=== PATIENT | female | born 1960 | race Caucasian/White ===

== ENCOUNTER 2021-01-11 11:19 | Outpatient (REF) | payer OTHER, SELFPAY ==
--- NOTE | ~2021-01-11 | CT_ITS ---
EXAMINATION: CT SOFT TISSUE NECK WITH CONTRAST CLINICAL INFORMATION: Right neck mass. Evaluate for malignancy. COMPARISON: No relevant prior imaging. TECHNIQUE: Following the intravenous administration of 60 mL of Omnipaque 350 intravenous contrast, helical imaging was performed in the axial plane with generation of coronal and sagittal reformatted images. This CT examination was performed using dose optimization techniques as appropriate, variously including the following: *Automated exposure control *Adjustment of mA and/or kV according to patient size (this includes techniques or standardized protocols for targeted exams where dose is matched to indication/reason for exam; i.e. extremities or head) *Use of iterative reconstruction technique DLP: 307 mGy-cm FINDINGS: There is a heterogeneously enhancing solid mass within the right submandibular space measuring 2.3 cm in diameter best illustrated on axial image 52 of 138 series 3. There is nonspecific stranding within the adjacent fat and asymmetric hyperenhancement of the right submandibular gland. Otherwise no pathologically enlarged cervical lymph nodes. No mediastinal or axillary adenopathy is visualized within the [id number] of this examination. Pharyngeal mucosal spaces are symmetric. Parapharyngeal and retromaxillary fat is preserved. [place] spaces are symmetric. The parotid glands are symmetric. The left submandibular gland is unremarkable. The epiglottis is normal. Preepiglottic fat is preserved. Glottic and subglottic airways are widely patent. The thyroid gland is normal and the remainder of the visualized visceral soft tissues are normal. Lung apices are clear. Heavily calcified atheromatous plaque involves the aortic arch apex. Cervical carotid and vertebral arteries are grossly patent. Internal jugular veins fill symmetrically. There is no acute osseous finding. No worrisome lytic or blastic osseous lesion. There chronic changes of an old healed right orbital blowout fracture. 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 This finding is best depicted on axial image 1 of [address]/CT soft tissue neck w con IMPRESSION: There is a 2.3 cm solid enhancing mass within the right submandibular space. This finding most likely represents a pathologically enlarged cervical lymph node related to unknown primary neoplasm. No other identifiable mass or adenopathy is visualized elsewhere within the [id number] of this examination. 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 A dedicated CT angiogram of the head can therefore be obtained for better anatomic characterization of the intracranial arterial anatomy.
[2021-01-11] MEDS: iohexoL 350 MG/ML 100 ML INFUS..BTL IV (12:34)
== END 2021-01-11 11:20 | disposition home or self-care (01) ==
LOC: HO.CT 11:19
PROVIDERS: Visit Provider Otolaryngology
DX: R22.1 Localized swelling, mass and lump, neck (principal)
CPT/HCPCS: 70491; Q9967

== ENCOUNTER 2021-03-09 07:53 | Outpatient (REF) | payer OTHER, SELFPAY ==
--- NOTE | ~2021-03-09 | CT_ITS ---
EXAMINATION: CT SOFT TISSUE NECK WITH CONTRAST CLINICAL INFORMATION: Right neck mass status post right base of tongue biopsy. COMPARISON: Neck CT January 11, 2021. TECHNIQUE: Following the intravenous administration of 100 mL of Omnipaque 350 intravenous contrast, helical imaging was performed in the axial plane with generation of coronal and sagittal reformatted images. This CT examination was performed using dose optimization techniques as appropriate, variously including the following: *Automated exposure control *Adjustment of mA and/or kV according to patient size (this includes techniques or standardized protocols for targeted exams where dose is matched to indication/reason for exam; i.e. extremities or head) *Use of iterative reconstruction technique DLP: 207 mGy-cm FINDINGS: The previously seen mass centered in the right submandibular triangle demonstrates significant increase in size now measuring up to 5.0 cm in maximal AP dimension, previously up to 2.3 cm when measured in a similar fashion. The lesion deforms the skin which appears abnormally thickened. There is stranding/infiltration of the adjacent tissues and fascial planes with extension into the floor of mouth and mass is inseparable with the mylohyoid. There is new erosion of the inferior aspect of the mandibular cortex with erosive changes. Tumor appears to extend into or at least contact the submandibular gland. The palatine tonsils appear symmetric. No definite base of tongue lesion is seen. The laryngeal contours appear normal. No enlarged lymph nodes are seen along the cervical chains. No enlarged upper mediastinal lymph nodes are seen. The thyroid gland is unremarkable. Atheromatous changes are seen within the arteries. 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 The imaged intracranial contents are unremarkable. The cervical spine is intact. No consolidation is seen within the upper lungs. CT/CT soft tissue neck w con IMPRESSION: Progressive enlargement of the previously seen mass in the right submandibular triangle now measuring up to 5.0 cm with associated infiltration/invasion into the adjacent structures including extension into the floor of mouth and eroding the inferior aspect of the mandibular cortex. The lesion visibly deforms the skin. No enlarged lymph nodes seen within the cervical chains. This critical result was discussed with Dr. Mitchell on 03/11/2021 10:13 AM, and it was ascertained that the content and urgency of the report was understood at the time of direct communication.
[2021-03-09] MEDS: iohexoL 350 MG/ML 100 ML INFUS..BTL IV (08:26)
== END 2021-03-09 07:54 | disposition home or self-care (01) ==
LOC: HO.CT 07:53
PROVIDERS: Visit Provider Otolaryngology
DX: C77.9 Secondary and unspecified malignant neoplasm of lymph node, unspecified (principal)
CPT/HCPCS: 70491; Q9967